=== PATIENT | male | born 1990 | race Two or more races ===

== ENCOUNTER 2024-09-19 12:58 | Emergency (ER) | payer OTHER ==
[~2024-09-19] VITALS: Ht 157.5 cm; Wt 77.1 kg
[2024-09-19] MEDS ORDERED: FAMOTIDINE/PF 20 MG/2 ML VIAL IV ONE (14:15)
[2024-09-19] MEDS ORDERED: ONDANSETRON HCL 2 MG/ML VIAL IV ONE (14:15)
[2024-09-19] MEDS ORDERED: 0.9 % SODIUM CHLORIDE 1,000 ML IV ONE (14:15)
[2024-09-19] MEDS ORDERED: LACTOBACILLUS ACIDOPHILUS 1 CAP CAP PO ONE ×2 (14:30→14:59)
[2024-09-19] MEDS ORDERED: ONDANSETRON HCL 2 MG/ML VIAL ONE (14:58)
[2024-09-19] MEDS ORDERED: FAMOTIDINE/PF 20 MG/2 ML VIAL ONE (14:59)
[2024-09-19 15:30] LABS: HEMATOCRIT 45.5 % (39.0-48.0); HEMOGLOBIN 15.2 g/dL (13-16.00); MEAN CELL VOLUME 81.9 fL (80.0-100.00); MEAN CORPUSCULAR HEMOGLOBIN 27.3 pg (27.00-32.0); MEAN CORPUSCULAR HGB CONC 33.4 g/dl (32.0-36.0); PLATELET COUNT 255 K/uL (150-450); RED BLOOD COUNT 5.55 M/uL (4.00-6.00)
[2024-09-19 15:45] LABS: PH,URINE 5.5 (5.0-8.0); URINE APPEARANCE Clear; URINE BILIRRUBIN Negative (NEGATIVE); URINE BLOOD Trace; URINE COLOR Dark Yellow; URINE GLUCOSE Negative (NEGATIVE); URINE KETONE 15 (NEGATIVE); URINE LEUKOCYTE Negative; URINE NITRATE Negative; URINE PROTEIN 30 (NEGATIVE)
[2024-09-19 15:49] LABS: URINE BACTERIA 8.5 uL (0.0-1933); URINE EPITHELIAL CELLS 2.5 uL (0.0-38.8); URINE RBC 29.3 uL (0.0-20.8)
[2024-09-19 15:54] LABS: ALBUMIN 3.8 gm/dL (3.4-5.0); BILIRUBIN TOTAL 1.03 mg/dL (0.3-1.2); CALCIUM 8.8 mg/dL (8.5-10.1); CREATININE SERUM 0.95 mg/dL (0.70-1.30); GFR 91.87; GLOBULINA 3.7 G/DL (2.4-3.5); POTASSIUM 3.99 mEq/L (3.5-5.1); TOTAL PROTEIN 7.5 gm/dL (6.4-8.2)
[2024-09-19 16:27] LABS: URINE WBC 1.5 uL (0.0-23.2)
[2024-09-19] MEDS ORDERED: ONDANSETRON HCL4 MG PO (18:15)
[2024-09-19] MEDS ORDERED: INTESTINEX680 M1 PO (18:15)
[2024-09-19] MEDS ORDERED: PEPCID AC20 MG PO (18:15)
== END 2024-09-19 19:02 ==
LOC: ER 13:00
PROVIDERS: Emergency Medicine
DX: K52.9 Noninfective gastroenteritis and colitis, unspecified (principal); Z20.822 Contact with and (suspected) exposure to COVID-19